=== PATIENT | male | born 1995 | race Caucasian/White ===

== ENCOUNTER → 2023-07-25 | Outpatient (CLI) | payer OTHER, BC ==
[2023-07-25 16:21] LABS: BASOPHILS ABSOLUTE AUTO 0.07 K/mm3 (0.00-0.23); BASOPHILS PERCENT AUTO 1 % (0-2); EOSINOPHILS PERCENT AUTO 3 % (0-6); Hemoglobin 15.9 g/dL (13.5-17.5); IMMATURE GRAN ABSOLUTE AUTO 0.02 K/mm3 (0.00-0.10); IMMATURE GRAN PERCENT AUTO 0 % (0-1); LYMPHOCYTES ABSOLUTE AUTO 1.98 K/mm3 (0.84-5.20); LYMPHOCYTES PERCENT AUTO 30 % (21-46); MONOCYTES ABSOLUTE AUTO 0.61 K/mm3 (0.16-1.47); MONOCYTES PERCENT AUTO 9 % (4-13); Mean Corpuscular HGB 32.1 pg (26.0-34.0); Mean Corpuscular HGB Conc 34.6 g/dL (31.5-36.5); Mean Corpuscular Volume 93 fL (80-100); Mean Platelet Volume 10.5 fL (9.1-12.4); NEUTROPHILS ABSOLUTE AUTO 3.68 K/mm3 (1.96-9.15); NEUTROPHILS PERCENT AUTO 56 % (41-73); Platelet Count 254 K/mm3 (150-400); RDW Coefficient Variation 12.5 % (11.7-14.2); RDW Standard Deviation 42.7 fL (35.1-46.3); Red Blood Cell Count 4.96 M/mm3 (4.30-5.90); White Blood Cell Count 6.56 K/mm3 (4.00-11.30)
[2023-07-25 18:05] LABS: Alanine Aminotransfer (ALT/SGP 38 U/L (12-78); Albumin/Globulin Ratio 1.5 (0.8-1.8); Alk Phos 80 U/L (50-136); Anion Gap 6 mmol/L (6-16); Aspartate Aminotrans (AST/SGOT 25 U/L (12-37); Bilirubin, Total 0.5 mg/dL (0.1-1.0); Blood Urea Nitrogen 4 mg/dL (8-24); CHOL/HDL RATIO 1.6; CO2, Blood 29 mmol/L (21-32); Calcium, Blood 8.9 mg/dL (8.5-10.1); Chloride, Blood 103 mmol/L (98-108); Cholesterol 191 mg/dL (50-200); Globulin, Blood 2.7 g/dL (2.2-4.0); Glucose, Blood 84 mg/dL (70-99); HDL Cholesterol 123 mg/dL (>39); LDL/HDL RATIO 0.5; Low Density Lipoprotein Chol 56 mg/dL (0-110); Potassium, Blood 4.1 mmol/L (3.5-5.5); Sodium, Blood 138 mmol/L (136-145); Total Protein, Blood 6.7 g/dL (6.4-8.2); Triglycerides 62 mg/dL (30-140); Very Low Density Lipoprot Chol 12 mg/dL (6-28)
[2023-07-25 18:13] LABS: Bun/Creatinine Ratio 6.5 (12.0-20.0); Creatinine, Blood 0.61 mg/dL (0.60-1.20); Glomerular Filtration Rate 134 (60-)
== END | disposition home or self-care (01) ==
LOC: LAB SHORT 14:54 → LAB 14:54
PROVIDERS: Hospitalist
DX: R42 Dizziness and giddiness (principal)
CPT/HCPCS: 80053; 80061; 85025

== ENCOUNTER → 2025-05-13 | Outpatient (CLI) | payer BC ==
[2025-05-13 15:16] LABS: Anion Gap 4.0 mmol/L (3-11); Blood Urea Nitrogen 12.0 mg/dL (8-24); CO2, Blood 32.0 mmol/L (21-32); Calcium, Blood 9.2 mg/dL (8.5-10.1); Chloride, Blood 106.0 mmol/L (98-108); Creatinine, Blood 0.49 mg/dL (0.60-1.20); Glucose, Blood 100.0 mg/dL (70-99); Potassium, Blood 4.3 mmol/L (3.5-5.5); Sodium, Blood 138.0 mmol/L (136-145)
== END ==
LOC: LAB SHORT 11:35 → LAB 11:35
PROVIDERS: Hospitalist
DX: I10 Essential (primary) hypertension (principal)
CPT/HCPCS: 80048